=== PATIENT | female | born 1955 | race Caucasian/White ===

== ENCOUNTER 2023-03-20 14:05 | Emergency (ER) | payer BC, MEDICARE ==
[~2023-03-20] VITALS: Ht 157.5 cm; Wt 67.6 kg
[2023-03-20] MEDS ORDERED: TRAMADOL HCL50 MG PO (15:26)
[2023-03-20 16:15] VITALS: BP 120/75
== END 2023-03-20 16:15 | disposition home or self-care (01) ==
LOC: ED 14:05
DX: S52.592A Other fractures of lower end of left radius, initial encounter for closed fracture (principal); W18.09XA Striking against other object with subsequent fall, initial encounter; W55.12XA Struck by horse, initial encounter
CPT/HCPCS: 73110

== ENCOUNTER 2023-06-17 17:19 | Emergency (ER) | payer MEDICARE, BC ==
[~2023-06-17] VITALS: Ht 157.5 cm; Wt 69.4 kg
[~2023-06-17 17:19] MED LIST: TRAMADOL HCL50 MG PO
[2023-06-17] MEDS ORDERED: ALEVE220 M1 PO (17:51)
[2023-06-17] MEDS ORDERED: VOLTAREN ARTHRI20 GM (17:52)
[2023-06-17] MEDS ORDERED: PENICILLIN V P500 MG PO (18:21)
[2023-06-17] MEDS ORDERED: HYDROCODON-ACE1 EA11 PO (18:21)
[2023-06-17 18:31] VITALS: BP 122/67
== END 2023-06-17 18:32 | disposition home or self-care (01) ==
LOC: ED 17:19
DX: K08.89 Other specified disorders of teeth and supporting structures (principal)
CPT/HCPCS: 99282; A9270